=== PATIENT | female | born 1940 | race Caucasian/White ===

== ENCOUNTER 2017-08-12 12:23 | Observation (INO) | payer OTHER, MEDICAID ==
[2017-08-12] VITALS (8 sets, daily range): BP systolic 141–202; BP diastolic 70–86; PULSE 86–104; RESP 16–20; TEMP 98–98.5; O2SAT 95–96
[~2017-08-12] VITALS: Ht 160 cm; Wt 67.0 kg
[~2017-08-12 12:23] MED LIST: CHOL4POW4 PO; CIPR500T4 PO; FLAG500T PO; LISI-357 PO; LORTA5 PO; NEUR300C PO; OMEP20TA PO
--- NOTE | 2017-08-12 12:31 | PD ---
Physical Exam Date Seen by Provider: Aug 12, 2017 Time Seen by Provider: 12:28 Narrative 76-year-old white female presents to emergency department with complains of chest and back pain 2 days. She states that she's had 2 episodes waking her up in the middle the night. She states that she feels sharp pain and heaviness in her chest when this happens. It lasts typically approximately 5 minutes. She's had some associated diaphoresis. Mild shortness of breath No nausea vomiting. Today she states that she has cramping in her right upper back. Pain is a 5/10. She notified her doctor who advised to come the ER today. She denies any trauma. No history of coronary disease. Vital signs reviewed. Pt. waiting for bed placement. Data Data Last Documented VS Vital Signs Date Time Temp Pulse Resp B/P (MAP) Pulse Ox O2 Delivery O2 Flow Rate FiO2 08/12/17 12:26 98.5 104 17 183/80 (114) 96 Room Air [facility] Medical Record Reviewed: No Supervised Visit with ERIK: Jaydon Ordonez Aug 12, 2017 12:31
[2017-08-12] MEDS ORDERED: GABA300C5 PO (12:43)
[2017-08-12] MEDS ORDERED: LISI2.5T3 PO (12:43)
[2017-08-12] MEDS ORDERED: CHOL4POW3 PO (12:43)
[2017-08-12] MEDS ORDERED: OMEP20TA PO (12:43)
[2017-08-12] MEDS ORDERED: VITA100036 PO (12:44)
[2017-08-12] MEDS ORDERED: VITA10002 PO (12:44)
--- NOTE | 2017-08-12 13:13 | PD ---
HPI Chief Complaint: Chest Pain Time Seen by Provider: 13:10 Travel History International Travel<30 days: No Contact w/Intl Traveler<30days: No Traveled to known affect area: No History of Present Illness HPI 76-year-old female presents the emergency department with episodic chest pain with radiation to the right shoulder and between the shoulder blades. Patient states chest pressure with an 2 nights ago lasting approximate 5 minutes. She then felt fine until last evening where she had recurrent episode of chest pressure with radiation pain to the right shoulder and back, with continued discomfort between the shoulder blades which she rates as a 5 out of 10. She feels somewhat short of breath. She denies nausea, vomiting, or fever. No cough. Patient states she had her gallbladder out approximate 3 years ago. Patient normally does not take aspirin or other medications for her heart. No previous heart disease reported. She is allergic to codeine and oxycodone which makes her sick to her stomach. PFSH Past Medical History Arthritis: Yes Asthma: Yes Autoimmune Disease: No Heart Rhythm Problems: Yes (HX A FIB when had gallbladder sx went into afib) Cancer: No Cardiac Catheterization: No Cardiovascular Problems: Yes High Cholesterol: Yes Congestive Heart Failure: No Diabetes: No Diminished Hearing: Yes Endocrine: No Gastrointestinal Disorders: Yes GERD: Yes Genitourinary: Yes (KIDNEY STONES) Hepatitis: No Hiatal Hernia: No Hypertension: Yes Immune Disorder: No Medical other: Yes (ARTHRITIS) Musculoskeletal: Yes (BILATERAL FROZEN SHOULDER JOINT.) Neurologic: No Psychiatric: No Respiratory: Yes (?asthma,?bronchitis) Sickle Cell Disease: No Thyroid Disease: No Tetanus Vaccination: Unknown Menopausal: Yes Tubal Ligation: Yes Past Surgical History Abdominal Surgery: Yes (APPENDECTOMY AND TUBAL LIGATION) Appendectomy: Yes Cholecystectomy: Yes (2012) Coronary Artery Bypass Graft: No Genitourinary Surgery: Yes (KIDNEY STONES) Oral Surgery: Yes (AGE 5 T&A ; EGD) Pacemaker: No Tonsillectomy: Yes Other Surgery: Yes Social History Alcohol Use: Yes (RARELY) Tobacco Use: No Substance Use: No Allergies-Medications (Allergen,Severity, Reaction): Coded Allergies: codeine (Unverified Allergy, Severe, hives, 08/12/17) oxycodone (Unverified Adverse Reaction, Intermediate, LIGHTHEADED, ) Reported Meds & Prescriptions Reported Meds & Active Scripts Active Reported Vitamin D3 (Cholecalciferol) 1,000 Unit Cap 1,000 Units PO DAILY Vitamin B-12 (Cyanocobalamin) 1,000 Mcg Tab 1,000 Mcg PO DAILY Omeprazole 20 Mg Tab 20 Mg PO DAILY Lisinopril 2.5 Mg Tab 2.5 Mg PO DAILY Gabapentin 300 Mg Cap 300 Mg PO BID Cholestyramine 4 Gm/Dose Powd 4 Gm PO DAILY 1 level scoopful of powder contains 4 grams of cholestyramine. Review of Systems Except as stated in HPI: all other systems reviewed are Neg General / Constitutional: No: Fever, Chills Eyes: No: Visual changes HENT: No: Headaches Cardiovascular: Positive: Chest Pain or Discomfort, Dyspnea on exertion, No: Palpitations, Irregular Rhythm, Tachycardia, Diaphoresis, Syncope, Varicosities , Edema, Cyanosis, Varicosities, Phlebitis, Claudication Respiratory: No: Cough, Shortness of Breath, Wheezing Gastrointestinal: No: Nausea, Vomiting, Diarrhea, Abdominal Pain Genitourinary: No: Dysuria Musculoskeletal: No: Myalgias, Arthralgias, Limited ROM, Pain Skin: No Rash Neurologic: No: Weakness Psychiatric: No: Depression Endocrine: No: Polydipsia Hematologic/Lymphatic: No: Easy Bruising Physical Exam Narrative GENERAL: Patient appears in mild distress. SKIN: Warm and dry. Normal color. Normal turgor. HEAD: Atraumatic. Normocephalic. EYES: Pupils equal and round. No scleral icterus. No injection or drainage. ENT: No nasal bleeding or discharge. Mucous membranes pink and moist. Pharynx is normal. Airway is patent. NECK: Trachea midline. Supple and nontender. CARDIOVASCULAR: Regular rate and rhythm. No murmurs gallops or rubs. RESPIRATORY: No accessory muscle use. Clear to auscultation. Breath sounds equal bilaterally. GASTROINTESTINAL: Abdomen soft, mild right upper quadrant tenderness, nondistended. Hepatic and splenic margins not palpable. No CVA tenderness MUSCULOSKELETAL: Extremities without clubbing, cyanosis, or edema. No obvious deformities. NEUROLOGICAL: Awake and alert. No obvious cranial nerve deficits. Motor grossly within normal limits. Five out of 5 muscle strength in the arms and legs. Normal speech. PSYCHIATRIC: Appropriate mood and affect; insight and judgment normal. Data Data Last Documented VS Vital Signs Date Time Temp Pulse Resp B/P (MAP) Pulse Ox O2 Delivery O2 Flow Rate FiO2 08/12/17 13:41 86 16 171/75 (107) 95 Room Air 08/12/17 13:41 98.4 Orders Orders Electrocardiogram (08/12/17 13:13) Ckmb (Isoenzyme) Profile (08/12/17 13:13) Complete Blood Count With Diff (08/12/17 13:13) Comprehensive Metabolic Panel (08/12/17 13:13) Magnesium (Mg) (08/12/17 13:13) Prothrombin Time / Inr (Pt) (08/12/17 13:13) Act Partial Throm Time (Ptt) (08/12/17 13:13) Troponin I (08/12/17 13:13) Lipase (08/12/17 13:13) Chest, Single Ap (08/12/17 13:13) Ecg Monitoring (08/12/17 13:13) Bilateral Bp Monitoring (08/12/17 13:13) Iv Access Insert/Monitor (08/12/17 13:13) Oximetry (08/12/17 13:13) Oxygen Administration (08/12/17 13:13) Aspirin Chew (Aspirin Chew) (08/12/17 13:15) Morphine Inj (Morphine Inj) (08/12/17 13:15) Nitroglycerin 2% Oint (Nitroglycerin 2% (08/12/17 13:15) Sodium Chloride 0.9% Flush (Ns Flush) (08/12/17 13:15) Sodium Chlorid 0.9% 500 Ml Inj (Ns 500 M (08/12/17 13:15) Ondansetron Inj (Zofran Inj) (08/12/17 13:15) Admit Order (Ed Use Only) (08/12/17 14:05) Labs Laboratory Tests Test 08/12/17 13:15 White Blood Count 8.4 TH/MM3 Red Blood Count 4.88 MIL/MM3 Hemoglobin 14.0 GM/DL Hematocrit 41.4 % Mean Corpuscular Volume 84.9 FL Mean Corpuscular Hemoglobin 28.8 PG Mean Corpuscular Hemoglobin Concent 33.9 % Red Cell Distribution Width 14.6 % Platelet Count 255 TH/MM3 Mean Platelet Volume 7.7 FL Neutrophils (%) (Auto) 61.5 % Lymphocytes (%) (Auto) 29.5 % Monocytes (%) (Auto) 6.6 % Eosinophils (%) (Auto) 1.5 % Basophils (%) (Auto) 0.9 % Neutrophils # (Auto) 5.2 TH/MM3 Lymphocytes # (Auto) 2.5 TH/MM3 Monocytes # (Auto) 0.6 TH/MM3 Eosinophils # (Auto) 0.1 TH/MM3 Basophils # (Auto) 0.1 TH/MM3 CBC Comment DIFF FINAL Differential Comment Prothrombin Time 10.6 SEC Prothromb Time International Ratio 1.0 RATIO Activated Partial Thromboplast Time 24.9 SEC Blood Urea Nitrogen 14 MG/DL Creatinine 0.81 MG/DL Random Glucose 109 MG/DL Total Protein 7.0 GM/DL Albumin 3.6 GM/DL Calcium Level 8.9 MG/DL Magnesium Level 2.2 MG/DL Alkaline Phosphatase 121 U/L Aspartate Amino Transf (AST/SGOT) 24 U/L Alanine Aminotransferase (ALT/SGPT) 21 U/L Total Bilirubin 0.5 MG/DL Sodium Level 138 MEQ/L Potassium Level 4.1 MEQ/L Chloride Level 107 MEQ/L Carbon Dioxide Level 23.7 MEQ/L Anion Gap 7 MEQ/L Estimat Glomerular Filtration Rate 69 ML/MIN Total Creatine Kinase 62 U/L Troponin I LESS THAN 0.02 NG/ML Lipase 147 U/L MDM Medical Decision Making Medical Screen Exam Complete: Yes Emergency Medical Condition: Yes Medical Record Reviewed: Yes Differential Diagnosis Atypical chest pain. Biliary colic. Pancreatitis. Cardiac syndrome. Narrative Course Patient appears medically stable at time of exam. EKG shows normal sinus rhythm without ST changes. This is reviewed with Dr. Green. X-ray is ordered. Labs ordered including CBC, CMP, cardiac panel, coagulation studies, lipase, and urinalysis. IV access is obtained, patient is given 500 mL of normal saline bolus, 4 mg morphine IV, 4 mg Zofran IV, and 324 mg aspirin. CBC is unremarkable. CMP is unremarkable except for GFR 69, random glucose 109, alkaline phosphatase slightly elevated at 121, first troponin is less than 0.02 Coagulation studies are normal. Patient is reassessed and found to have improved pain down to about a 1-2 in her back between her shoulder blades. Discussed admission to the chest pain center, and the patient agrees. Diagnosis Primary Impression: Chest pain in adult Admitting Information Admitting Physician Requests: Observation Condition: Stable Jacob Sanchez Aug 12, 2017 13:13
[2017-08-12] MEDS ORDERED: SODIUM CHLORIDE 0.9% FLUSH 10 ML FLUSH IVF PRN (13:15)
[2017-08-12] MEDS ORDERED: SODIUM CHLORID 0.9% 500 ML INJ 500 ML IV ONE (13:15)
[2017-08-12] MEDS ORDERED: ONDANSETRON HCL 4 MG/2 ML VIAL IV PUSH ONE (13:15)
[2017-08-12] MEDS ORDERED: MORPHINE SULFATE 4 MG/ML INJ IV PUSH ONE (13:15)
[2017-08-12] MEDS ORDERED: ASPIRIN 81 MG CHEW TAB PO ONE (13:15)
[2017-08-12] MEDS ORDERED: NITROGLYCERIN 2% OINT 1 GM PACKET TOP ONE (13:15)
[2017-08-12 13:41] LABS: AUTOMATED NEUTROPHIL # 5.2 TH/MM3 (1.8-7.7); BASOPHIL # 0.1 TH/MM3 (0-0.2); BASOPHIL % 0.9 % (0.0-2.0); EOSINOPHIL # 0.1 TH/MM3 (0-0.4); EOSINOPHIL % 1.5 % (0.0-4.0); HEMATOCRIT 41.4 % (35.0-46.0); HEMO FLAGS DIFF FINAL; LYMPH % 29.5 % (9.0-44.0); LYMPHOCYTE # 2.5 TH/MM3 (1.0-4.8); MEAN CELL VOLUME 84.9 FL (80.0-100.0); MEAN CORPUSCULAR HEMOGLOBIN 28.8 PG (27.0-34.0); MEAN CORPUSCULAR HGB CONC 33.9 % (32.0-36.0); MONO % 6.6 % (0.0-8.0); NEUT % 61.5 % (16.0-70.0); PLATELET COUNT 255 TH/MM3 (150-450); RED BLOOD COUNT 4.88 MIL/MM3 (4.00-5.30); RED CELL DISTRIBUTION WIDTH 14.6 % (11.6-17.2); WHITE BLOOD COUNT 8.4 TH/MM3 (4.0-11.0)
--- NOTE | 2017-08-12 13:42 | RADRPT ---
EXAM DATE/TIME: 08/12/2017 13:30 [facility] COMPARISON: CHEST SINGLE AP, January 06, 2016, 17:12. INDICATIONS : Chest pain began suddenly this morning MEDICAL HISTORY : Hypertension. SURGICAL HISTORY : None. ENCOUNTER: Initial ACUITY: 1 day PAIN SCORE: 6/10 LOCATION: Bilateral chest FINDINGS: A single view of the chest demonstrates the lungs to be symmetrically aerated without evidence of mas s, infiltrate or effusion. The cardiomediastinal contours are unremarkable. Osseous structures are intact. CONCLUSION: No acute disease. Flaquito Medellin MD FACR on August 12, 2017 at 13:40 Board Certified Radiologist. This report was verified electronically.
[2017-08-12 13:52] LABS: ALT (GPT) 21 U/L (10-53)
[2017-08-12 13:53] LABS: APTT (PATIENT) 24.9 SEC (24.3-30.1); PROTHROMBIN TIME - PATIENT 10.6 SEC (9.8-11.6)
[2017-08-12 13:56] LABS: ALKALINE PHOSPHATASE 121 U/L (45-117); ANION GAP 7 MEQ/L (5-15); AST (GOT) 24 U/L (15-37); BICARBONATE 23.7 MEQ/L (21.0-32.0); BLOOD UREA NITROGEN 14 MG/DL (7-18); CHLORIDE 107 MEQ/L (98-107); GLOMERULAR FILTRATION RATE 69 ML/MIN (>89); MAGNESIUM 2.2 MG/DL (1.5-2.5); SODIUM (NA) 138 MEQ/L (136-145); TOTAL BILIRUBIN ADULT 0.5 MG/DL (0.2-1.0)
[2017-08-12 13:57] LABS: CREATINE KINASE 62 U/L (26-192); POTASSIUM 4.1 MEQ/L (3.5-5.1)
[2017-08-12] MEDS ORDERED: NITROGLYCERIN 0.4 MG SL 25 TABS/BTL SL PRN (14:45)
[2017-08-12] MEDS ORDERED: ACETAMINOPHEN 500 MG CPLT PO PRN (14:45)
[2017-08-12] MEDS ORDERED: ONDANSETRON HCL 4 MG/2 ML VIAL IV PUSH PRN (14:45)
--- NOTE | 2017-08-12 15:26 | HHI.HP ---
HPI Primary Care Physician Gonzalo Nelson MD Chief Complaint Chest pressure History of Present Illness 76-year-old female with history of osteoarthritis and GERD presents to emergency room for further evaluation of chest pressure. Onset Saturday evening. Discomfort woke her from sleep. Location substernal chest. Radiation between her shoulder blades. Duration 10 minutes. Associated symptoms shortness of breath and fatigue. Initially thought maybe she slept "wrong." Episode occurred again Saturday 3 AM, same location and presentation. This morning approximately 6:30 AM chest pressure woke her up from sleep. Location substernal with radiation between her shoulder blades. Duration 10 minutes. Again she experienced dyspnea and fatigue. Reports diaphoresis although states this is normal for her. No known precipitating or relieving factors. Denies similar pain in the past. Currently chest pain-free. Became concerned due to 3 separate chest pressure episodes therefore came in the ER for further evaluation. Review of Systems General: No fatigue,weakness, fever, chills, or recent illness. Endorses an active lifestyle. Walks 3 times/weekly the local rec center. Was an avid runner until 3 years ago. HEENT: No CHAVEZ CV: As stated above. Denies any current chest pain, pressure, or tightness. RESP: No SOB, cough, or sputum production. GI: No nausea, vomiting, or bowel changes. : No dysuria. History of kidney stones. Reports lisinopril is ordered to "protect her kidneys." EXT: No lower leg edema, no paraesthesias MS: No discomfort or change in ROM NEURO: No change in memory, dizziness, difficulty with balance, LOC, motor/ sensory deficits PSYCH: No anxiety, depression, or current situational stress. SKIN: No rashes, no concerning lesions Past Family Social History Allergies: Coded Allergies: codeine (Unverified Allergy, Severe, hives, 08/12/17) oxycodone (Unverified Adverse Reaction, Intermediate, LIGHTHEADED, ) Past Medical History GERD, diverticulosis, asthma, osteoarthritis, liver cyst, kidney stones, A. fib (after gallbladder surgery 3 years ago) Past Surgical History Tonsillectomy, appendectomy, cholecystectomy Reported Medications Reported Meds & Active Scripts Active Reported Vitamin D3 (Cholecalciferol) 1,000 Unit Cap 1,000 Units PO DAILY Vitamin B-12 (Cyanocobalamin) 1,000 Mcg Tab 1,000 Mcg PO DAILY Omeprazole 20 Mg Tab 20 Mg PO DAILY Lisinopril 2.5 Mg Tab 2.5 Mg PO DAILY Gabapentin 300 Mg Cap 300 Mg PO BID Cholestyramine 4 Gm/Dose Powd 4 Gm PO DAILY 1 level scoopful of powder contains 4 grams of cholestyramine. Active Ordered Medications Current Medications Medications (Trade) Dose Ordered Sig/Shayna Route Start Time Stop Time Status Last Admin (NS Flush) 2 ml UNSCH PRN IVF 08/12/17 13:15 (NS Flush) 2 ml BID IV FLUSH 08/12/17 21:00 (Tylenol) 500 mg Q4H PRN PO 08/12/17 14:45 (Zofran Inj) 4 mg Q6H PRN IV PUSH 08/12/17 14:45 (Nitrostat Sl) 0.4 mg Q5M PRN SL 08/12/17 14:45 (Aspirin) 325 mg DAILY PO 08/13/17 09:00 Family History Noncontributory for early onset cardiovascular disease. Social History No known coronary artery disease, hypertension, or hyperlipidemia, or diabetes. Lifelong nonsmoker. Endorses an active lifestyle. Walks 3 times/weekly local rec center. Past cardiac testing No recent stress testing Physical Exam Vital Signs Vital Signs Date Time Temp Pulse Resp B/P (MAP) Pulse Ox O2 Delivery O2 Flow Rate FiO2 08/12/17 13:41 86 16 171/75 (107) 95 Room Air 08/12/17 13:41 98.4 102 19 202/86 (124) 201/82 (121) 08/12/17 13:41 96 Room Air 08/12/17 12:37 105 19 98 Room Air 08/12/17 12:26 98.5 104 17 183/80 (114) 96 Room Air Physical Exam GENERAL: Alert WN, WD, NAD, pleasant, elderly female HEAD: NC, AT NECK: Supple, no masses, trachea midline CV: RRR, without murmur, rub, gallop, no JVD, S1-S2 no S3-S4. RESP: Clear lungs throughout bilateral, no crackles, wheeze, rhonchi, symmetrical chest rise, nonlabored, able to speak in full sentences ABD: Soft, NT, ND, no masses, positive bowel tones EXT: Pulses +24, trace bilateral lower extremity edema, bilateral lower leg varicosities MS: Normal tone 4 extremities, nontender, no obvious deformities, full range of motion NEURO: CN II through CN XII grossly intact, motor strength 5/5 PSYCH: A+O 3, pleasant affect, appropriate speech, appropriate mood and affect , insight and judgment SKIN: Normal turgor, normal texture, no lesions, no rashes, brisk cap refill, even hair distribution Laboratory Laboratory Tests Test 08/12/17 13:15 White Blood Count 8.4 Red Blood Count 4.88 Hemoglobin 14.0 Hematocrit 41.4 Mean Corpuscular Volume 84.9 Mean Corpuscular Hemoglobin 28.8 Mean Corpuscular Hemoglobin Concent 33.9 Red Cell Distribution Width 14.6 Platelet Count 255 Mean Platelet Volume 7.7 Neutrophils (%) (Auto) 61.5 Lymphocytes (%) (Auto) 29.5 Monocytes (%) (Auto) 6.6 Eosinophils (%) (Auto) 1.5 Basophils (%) (Auto) 0.9 Neutrophils # (Auto) 5.2 Lymphocytes # (Auto) 2.5 Monocytes # (Auto) 0.6 Eosinophils # (Auto) 0.1 Basophils # (Auto) 0.1 CBC Comment DIFF FINAL Differential Comment Prothrombin Time 10.6 Prothromb Time International Ratio 1.0 Activated Partial Thromboplast Time 24.9 Blood Urea Nitrogen 14 Creatinine 0.81 Random Glucose 109 Total Protein 7.0 Albumin 3.6 Calcium Level 8.9 Magnesium Level 2.2 Alkaline Phosphatase 121 Aspartate Amino Transf (AST/SGOT) 24 Alanine Aminotransferase (ALT/SGPT) 21 Total Bilirubin 0.5 Sodium Level 138 Potassium Level 4.1 Chloride Level 107 Carbon Dioxide Level 23.7 Anion Gap 7 Estimat Glomerular Filtration Rate 69 Total Creatine Kinase 62 Troponin I LESS THAN 0.02 Lipase 147 Result Diagram: 08/12/17 1315 08/12/17 1315 Imaging Last Impressions Chest X-Ray 08/12/17 1313 Signed Impressions: Service Date/Time: Saturday, August 12, 2017 13:30 - CONCLUSION: No acute disease. Flaquito Medellin MD FACR Course EKG Normal sinus rhythm, normal axis, no ST or T-segment changes Caprini VTE Risk Assessment Caprini VTE Risk Assessment: Mod/High Risk (score >= 2) Caprini Risk Assessment Model Point Value = 1 Point Value = 2 Point Value = 3 Point Value = 5 Age 41-60 Minor surgery BMI > 25 kg/m2 Swollen legs Varicose veins or History of unexplained or recurrent spontaneous Oral contraceptives or hormone replacement Sepsis (< 1 month) Serious lung disease, including pneumonia (< 1 month) Abnormal pulmonary function Acute myocardial infarction Congestive heart failure (< 1 month) History of inflammatory bowel disease Medical patient at bed rest Age 61-74 Arthroscopic surgery Major open surgery (> 45 min) Laparoscopic surgery (> 45 min) Malignancy Confined to bed (> 72 hours) Immobilizing plaster cast Central venous access Age >= 75 History of VTE Family history of VTE Factor V Leiden Prothrombin [id number] Lupus anticoagulant Anticardiolipin antibodies Elevated serum homocysteine Heparin-induced thrombocytopenia Other congenital or acquired thrombophilia Stroke (< 1 month) Elective arthroplasty Hip, pelvis, or leg fracture Acute spinal cord injury (< 1 month) Prophylaxis Regimen Total Risk Factor Score Risk Level Prophylaxis Regimen 0-1 Low Early ambulation 2 Moderate Order ONE of the following: *Sequential Compression Device (SCD) *Heparin 5000 units SQ BID 3-4 Higher Order ONE of the following medications: *Heparin 5000 units SQ TID *Enoxaparin/Lovenox 40 mg SQ daily (WT < 150 kg, CrCl > 30 mL/min) *Enoxaparin/Lovenox 30 mg SQ daily (WT < 150 kg, CrCl > 10-29 mL/min) *Enoxaparin/Lovenox 30 mg SQ BID (WT < 150 kg, CrCl > 30 mL/min) AND/OR *Sequential Compression Device (SCD) 5 or more Highest Order ONE of the following medications: *Heparin 5000 units SQ TID (Preferred with Epidurals) *Enoxaparin/Lovenox 40 mg SQ daily (WT < 150 kg, CrCl > 30 mL/min) *Enoxaparin/Lovenox 30 mg SQ daily (WT < 150 kg, CrCl > 10-29 mL/min) *Enoxaparin/Lovenox 30 mg SQ BID (WT < 150 kg, CrCl > 30 mL/min) AND *Sequential Compression Device (SCD) Assessment and Plan Assessment and Plan #1 Chest pain-admitted to chest pain center. Ruled out with 3 sets of EKGs, cardiac enzymes, and monitor overnight. Seen and evaluated by Dr. Eugene Cooley. If rules out plan for chemical stress test in a.m. Naturally if unremarkable, will discharge home with follow-up with PCP Dr. Gonzalo Nelson. Patient agreeable to plan of care. #2 GERD-continue omeprazole #3 Hypertension-continue to monitor Ana Davis Aug 12, 2017 15:26
[2017-08-12] MEDS ORDERED: PILL SPLITTER OTHER PRN (17:15)
[2017-08-12] MEDS: SODIUM CHLORIDE 0.9% FLUSH 10 ML FLUSH IV FLUSH SCH (21:00)
[2017-08-12] MEDS: GABAPENTIN 300 MG CAP PO SCH (21:00)
[2017-08-12 21:01] LABS: CREATINE KINASE 55 U/L (26-192)
[2017-08-12 23:22] LABS: CREATINE KINASE 36 U/L (26-192)
[2017-08-13 00:38] VITALS: PULSE 80
[2017-08-13 00:41] VITALS: BP 173/72; PULSE 81; RESP 17; TEMP 98.1; O2SAT 94
[2017-08-13 04:29] VITALS: BP 137/60; PULSE 77; RESP 17; TEMP 98.4; O2SAT 95
[2017-08-13 07:21] VITALS: PULSE 78
[2017-08-13 08:00] VITALS: BP 132/60; PULSE 75; RESP 16; TEMP 98.2; O2SAT 95
[2017-08-13] MEDS ORDERED: CHOLECALCIFEROL (VIT D3) 1000 UNIT TAB PO SCH (09:00)
[2017-08-13] MEDS ORDERED: CHOLESTYRAMINE 4 GM PACKET PO SCH (09:00)
[2017-08-13] MEDS ORDERED: PANTOPRAZOLE SOD 20 MG DELAYED RELEASE TAB PO SCH (09:00)
[2017-08-13] MEDS ORDERED: ASPIRIN 325 MG TAB PO SCH (09:00)
[2017-08-13] MEDS ORDERED: LISINOPRIL 5 MG TAB PO SCH (09:00)
[2017-08-13] MEDS: SODIUM CHLORIDE 0.9% FLUSH 10 ML FLUSH IV FLUSH SCH (09:00)
[2017-08-13] MEDS ORDERED: REGADENOSON INJ 0.4 MG/5 ML SYR ONE (09:05)
--- NOTE | 2017-08-13 10:39 | RADRPT ---
EXAM DATE/TIME: 08/13/2017 08:35 [facility] COMPARISON: No previous studies available for comparison. INDICATIONS : Mid chest pain with shortness of breath for four days. Angina. Atrial fibrillation. DOSE: 25.6 mCi Tc99m Myoview at stress. 8.7 mCi Tc99m Myoview at rest. 0.4 mg Lexiscan STRESS SYMPTOMS: Chest pressure. EJECTION FRACTION: > 70% MEDICAL HISTORY : Gastroesophageal reflux disease. SURGICAL HISTORY : Tubal ligation. Cholecystectomy. Appendectomy. ENCOUNTER: Initial ACUITY: 4 - 6 days PAIN SCALE: 5/10 LOCATION: Midsternal chest TECHNIQUE: The patient underwent pharmacologic stress with infusion of prescribed dose. Continuous ECG tracing was monitored during stress. Gated SPECT imaging was performed after stress and conventional SPECT i maging was performed at rest. The examination was performed on a SPECT/CT scanner, both attenuation and non-corrected datasets were reviewed. FINDINGS: DISTRIBUTION: The maximum perfused segment at stress is in the inferior wall. PERFUSION STUDY: The pattern of perfusion at stress is within normal limits with regional variations distress within 2 5%. No evidence of redistribution. The summed stress score zero. GATED STUDY: There is intact wall motion and thickening without hypokinetic or dyskinetic segments. CONCLUSION: 1. No evidence of stress-induced ischemia. 2. Technical motion with greater than 70% ejection fraction. RISK CATEGORY: Low (<1% Annual Mortality Rate) Johnny Dias MD on August 13, 2017 at 10:36 Board Certified Radiologist. This report was verified electronically.
[2017-08-13] MEDS: GABAPENTIN 300 MG CAP PO SCH (11:04)
--- NOTE | 2017-08-13 11:10 | HHI.DCPOC ---
Discharge Care Plan Diagnosis: (1) Atypical chest pain (2) Hypertension Goals to Promote Your Health * To prevent worsening of your condition and complications * To maintain your health at the optimal level Directions to Meet Your Goals Take your medications as prescribed Follow your dietary instruction Follow activity as directed Keep your appointments as scheduled Take your immunizations and boosters as scheduled If your symptoms worsen call your PCP, if no PCP go to Urgent Care Center or Emergency Room Smoking is Dangerous to Your Health. Avoid second hand smoke Call the 24-hour hour crisis hotline for domestic abuse at Ana Davis Aug 13, 2017 11:10
--- NOTE | 2017-08-13 11:13 | HHI.DS ---
Discharge Summary Admission Date Aug 12, 2017 at 14:07 Discharge Date: Aug 13, 2017 Admitting Diagnosis CHEST PAIN (1) Atypical chest pain Diagnosis: Principal ICD Codes: R07.89 - Other chest pain (2) Hypertension Diagnosis: Secondary ICD Codes: I10 - Essential (primary) hypertension Status: Chronic Procedures Last Impressions Myocardial Perfusion Scan Nuc Med 08/13/17 0000 Signed Impressions: Service Date/Time: Sunday, August 13, 2017 08:35 - CONCLUSION: 1. No evidence of stress-induced ischemia. 2. Technical motion with greater than 70% % ejection fraction. RISK CATEGORY: Low (<1%% Annual Mortality Rate) Johnny Dias MD Chest X-Ray 08/12/171312 Signed Impressions: Service Date/Time: Saturday, August 12, 2017 13:30 - CONCLUSION: No acute disease. Flaquito Medellin MD FACR Brief History 76-year-old female presents to emergency room for further evaluation chest pressure. Discomfort occurred last 3 evenings lasting approximately 10 minutes. Admitted to chest pain center. Ruled out with 3 sets of EKGs and cardiac enzymes. Proceeded with chemical stress test which was unremarkable. Discharged home with follow-up with PCP. CBC/BMP: 08/12/17 1315 08/12/17 1315 Significant Findings Laboratory Tests Test 08/12/17 13:15 08/12/17 19:15 08/12/17 22:30 Random Glucose 109 MG/DL (74-106) Alkaline Phosphatase 121 U/L (45-117) Estimat Glomerular Filtration Rate 69 ML/MIN (>89) Troponin I LESS THAN 0.02 NG/ML LESS THAN 0.02 NG/ML LESS THAN 0.02 NG/ML Imaging Last Impressions Myocardial Perfusion Scan Nuc Med 08/13/17 0000 Signed Impressions: Service Date/Time: Sunday, August 13, 2017 08:35 - CONCLUSION: 1. No evidence of stress-induced ischemia. 2. Technical motion with greater than 70% % ejection fraction. RISK CATEGORY: Low (<1%% Annual Mortality Rate) Johnny Dias MD Chest X-Ray 08/12/173 Signed Impressions: Service Date/Time: Saturday, August 12, 2017 13:30 - CONCLUSION: No acute disease. Flaquito Medellin MD FACR PE at Discharge GENERAL: Alert WN, WD, NAD, pleasant, female HEAD: NC, AT CV: RRR, without murmur, rub, gallop, no JVD, S1-S2 no S3-S4. RESP: Clear lungs throughout bilateral, no crackles, wheeze, rhonchi, symmetrical chest rise, nonlabored, able to speak in full sentences EXT: Pulses +24, no dependent edema MS: Normal tone 4 extremities, PSYCH: A+O 3, pleasant affect, appropriate speech, appropriate mood and affect , insight and judgment SKIN: Normal turgor, normal texture Pt Condition on Discharge: Good Discharge Disposition: Discharge Home Discharge Instructions DIET: Follow Instructions for: Heart Healthy Diet Activities you can perform: Regular-No Restrictions Ana Davis Aug 13, 2017 11:13
--- NOTE | 2017-08-13 14:34 | TR ---
Date Performed: 08/13/2017 Time Performed: 09:33:16 DOCTOR: Edita Deleon DRUG LIST: CLINICAL HISTORY: ANGINA REASON FOR TEST: REASON FOR ENDING: OBSERVATION: CONCLUSION: Lexiscan stress test was performed under standard four minute protocol. Radionuclid e was injected one minute prior to ending the test. No electrocardiographic abormalities were present to suggest ischemia. Nuclear imaging and interpretation are pending. COMMENTS:
--- NOTE | 2017-08-13 14:37 | EKG ---
Date Performed: 08/12/2017 Time Performed: 19:58:47 PTAGE: 76 years EKG: Sinus rhythm NORMAL ECG Since PREVIOUS TRACING , no significant change noted PREVIOUS TRACIN08/12/2017 16.35 DOCTOR: Edita Deleon Interpretating Date/Time 08/13/2017 14:35:59
--- NOTE | 2017-08-13 17:27 | EKG ---
Date Performed: 08/12/2017 Time Performed: 12:53:35 PTAGE: 76 years EKG: Sinus rhythm NORMAL ECG Since PREVIOUS TRACING , no significant change noted PREVIOUS TRACIN01/06/2016 17.36 DOCTOR: Edita Deleon Interpretating Date/Time 08/13/2017 17:26:19
--- NOTE | 2017-08-13 17:29 | EKG ---
Date Performed: 08/12/2017 Time Performed: 16:35:17 PTAGE: 76 years EKG: Sinus rhythm NORMAL ECG Since PREVIOUS TRACING , no significant change noted PREVIOUS TRACIN08/12/2017 12.53 DOCTOR: Edita Deleon Interpretating Date/Time 08/13/2017 17:28:06
== END 2017-08-13 11:55 | disposition home or self-care (01) ==
LOC: NEPE 12:23 → NEDA 14:07 → NEPHCDU 16:41
PROVIDERS: ADMIT Internal Medicine Cardiovascular Disease; ATTEND Internal Medicine Cardiovascular Disease
DX: R07.89 Other chest pain (principal); I10 Essential (primary) hypertension; K21.9 Gastro-esophageal reflux disease without esophagitis; M54.9 Dorsalgia, unspecified; R61 Generalized hyperhidrosis; R53.83 Other fatigue; R06.02 Shortness of breath; J45.909 Unspecified asthma, uncomplicated; I48.91 Unspecified atrial fibrillation; E78.00 Pure hypercholesterolemia, unspecified; H91.90 Unspecified hearing loss, unspecified ear; M19.90 Unspecified osteoarthritis, unspecified site
CPT/HCPCS: 71010; 78452; 80053; 82550; 83690; 83735; 84484; 85025; 85610; 85730; 93005; 93017; 96361; 96374; 96375; 99285; A9502; G0378; J2270; J2405; J2785; J7040

== ENCOUNTER 2018-03-02 17:01 | Emergency (ER) | payer OTHER, MEDICAID ==
[~2018-03-02] VITALS: Ht 160 cm; Wt 67.0 kg
[~2018-03-02 17:01] MED LIST changes: +CHOL10008 PO; +CHOL4POW3 PO; -CHOL4POW4 PO; -CIPR500T4 PO; -FLAG500T PO; +GABA300C5 PO; -LISI-357 PO; +LISI2.5T3 PO; -LORTA5 PO; -NEUR300C PO; -OMEP20TA PO; +OMEP20TA93 PO; +VITA10002 PO
[2018-03-02 17:04] VITALS: BP 187/86; PULSE 128; RESP 20; TEMP 97.9; O2SAT 96
[2018-03-02] MEDS ORDERED: SODIUM CHLORIDE 0.9% FLUSH 10 ML FLUSH IV FLUSH PRN ×2 (17:15→17:45)
[2018-03-02] MEDS ORDERED: SODIUM CHLOR 0.9% 1000 ML INJ 1,000 ML IV SCH (17:37)
[2018-03-02] MEDS ORDERED: ONDANSETRON ODT 4 MG TAB PO ONE (17:45)
--- NOTE | 2018-03-02 17:50 | PD ---
HPI Chief Complaint: GI Complaint Time Seen by Provider: 17:15 Travel History International Travel<30 days: No Contact w/Intl Traveler<30days: No Traveled to known affect area: No History of Present Illness HPI Patient presents to the emergency department states she did not feel well on Saturday night and on began having watery diarrhea and vomiting. Denies bloody stool or recent antibiotic use or recent travel or known sick contacts. States that she did not take her blood pressure medicine secondary to vomiting. She denies fever but reports chills, nausea and vomiting (last emesis 1 hour ago, p.o. intake). He denies chest pain, numbness or tingling, back pain, vision change, hematuria, dysuria, vaginal discharge, abdominal pain (but states that her abdomen is sore from vomiting). She is also reporting some dyspnea and headache, the latter for which she took 2 Aleve last night. PFSH Past Medical History Arthritis: Yes Asthma: Yes Autoimmune Disease: No Heart Rhythm Problems: Yes (HX A FIB when had gallbladder sx went into afib) Cancer: No Cardiac Catheterization: No Cardiovascular Problems: Yes High Cholesterol: Yes Congestive Heart Failure: No Diabetes: No Diminished Hearing: Yes Endocrine: No Gastrointestinal Disorders: Yes GERD: Yes Genitourinary: Yes (KIDNEY STONES) Hepatitis: No Hiatal Hernia: No Hypertension: Yes Immune Disorder: No Musculoskeletal: Yes (BILATERAL FROZEN SHOULDER JOINT.) Neurologic: No Psychiatric: No Respiratory: Yes (?asthma,?bronchitis) Sickle Cell Disease: No Thyroid Disease: No Menopausal: Yes Tubal Ligation: Yes Past Surgical History Abdominal Surgery: Yes (APPENDECTOMY AND TUBAL LIGATION) Appendectomy: Yes Cholecystectomy: Yes (2012) Coronary Artery Bypass Graft: No Genitourinary Surgery: Yes (KIDNEY STONES) Oral Surgery: Yes (AGE 5 T&A ; EGD) Pacemaker: No Tonsillectomy: Yes Other Surgery: Yes Social History Alcohol Use: Yes (RARELY) Tobacco Use: No Substance Use: No Allergies-Medications (Allergen,Severity, Reaction): Coded Allergies: codeine (Unverified Allergy, Severe, hives, 03/02/18) oxycodone (Unverified Adverse Reaction, Intermediate, LIGHTHEADED, 03/02/18 ) Reported Meds & Prescriptions Reported Meds & Active Scripts Active Zofran Odt (Ondansetron Odt) 4 Mg Tab 4 Mg SL Q6HR PRN 2 Days Reported Vitamin D3 (Cholecalciferol) 1,000 Unit Cap 2,000 Units PO DAILY Omeprazole 20 Mg Tab 20 Mg PO DAILY Lisinopril 2.5 Mg Tab 5 Mg PO DAILY Gabapentin 300 Mg Cap 300 Mg PO TID Cholestyramine 4 Gm/Dose Powd 4 Gm PO DAILY 1 level scoopful of powder contains 4 grams of cholestyramine. Review of Systems Except as stated in HPI: all other systems reviewed are Neg Physical Exam Narrative GENERAL: No acute distress. SKIN: Focused skin assessment warm/dry. HEAD: Atraumatic. Normocephalic. EYES: Pupils equal and round. No scleral icterus. No injection or drainage. ENT: No nasal bleeding or discharge. Dry mucous membranes. NECK: Trachea midline. No JVD. CARDIOVASCULAR: Tachycardia. no murmur appreciated. RESPIRATORY: No accessory muscle use. Clear to auscultation. Breath sounds equal bilaterally. GASTROINTESTINAL: Abdomen soft, epigastric tender, nondistended. Bilateral CVA tenderness. MUSCULOSKELETAL: No obvious deformities. No clubbing. No cyanosis. No edema. NEUROLOGICAL: Awake and alert. No obvious cranial nerve deficits. Motor grossly within normal limits. Normal speech. PSYCHIATRIC: Appropriate mood and affect; insight and judgment normal. Data Data Last Documented VS Vital Signs Date Time Temp Pulse Resp B/P (MAP) Pulse Ox O2 Delivery O2 Flow Rate FiO2 03/02/18 20:26 98 18 181/77 (111) 96 Room Air 03/02/18 17:04 97.9 Orders Orders Sodium Chloride 0.9% Flush (Ns Flush) (03/02/18 17:15) Complete Blood Count With Diff (03/02/18 17:37) Comprehensive Metabolic Panel (03/02/18 17:37) Lipase (03/02/18 17:37) Lactic Acid (03/02/18 17:37) Prothrombin Time / Inr (Pt) (03/02/18 17:37) Act Partial Throm Time (Ptt) (03/02/18 17:37) Urinalysis - C+S If Indicated (03/02/18 17:37) Iv Access Insert/Monitor (03/02/18 17:37) Ecg Monitoring (03/02/18 17:37) Oximetry (03/02/18 17:37) Sodium Chlor 0.9% 1000 Ml Inj (Ns 1000 M (03/02/18 17:37) Sodium Chloride 0.9% Flush (Ns Flush) (03/02/18 17:45) Electrocardiogram (03/02/18 17:37) Ondansetron Odt (Zofran Odt) (03/02/18 17:45) Ct Abd/Pel W Iv Contrast(Rout) (03/02/18 17:37) Troponin I (03/02/18 17:37) Iohexol 350 Inj (Omnipaque 350 Inj) (03/02/18 20:03) Sodium Chlor 0.9% 1000 Ml Inj (Ns 1000 M (03/02/18 20:15) Lisinopril (Prinivil) (03/02/18 20:30) Ed Discharge Order (03/02/18 20:38) Labs Laboratory Tests Test 03/02/18 17:58 03/02/18 19:30 White Blood Count 5.5 TH/MM3 Red Blood Count 5.51 MIL/MM3 Hemoglobin 15.3 GM/DL Hematocrit 46.4 % Mean Corpuscular Volume 84.2 FL Mean Corpuscular Hemoglobin 27.8 PG Mean Corpuscular Hemoglobin Concent 33.0 % Red Cell Distribution Width 14.5 % Platelet Count 224 TH/MM3 Mean Platelet Volume 8.1 FL Neutrophils (%) (Auto) 71.6 % Lymphocytes (%) (Auto) 20.1 % Monocytes (%) (Auto) 6.8 % Eosinophils (%) (Auto) 1.1 % Basophils (%) (Auto) 0.4 % Neutrophils # (Auto) 3.9 TH/MM3 Lymphocytes # (Auto) 1.1 TH/MM3 Monocytes # (Auto) 0.4 TH/MM3 Eosinophils # (Auto) 0.1 TH/MM3 Basophils # (Auto) 0.0 TH/MM3 CBC Comment DIFF FINAL Differential Comment Prothrombin Time 10.6 SEC Prothromb Time International Ratio 1.0 RATIO Activated Partial Thromboplast Time 24.3 SEC Blood Urea Nitrogen 17 MG/DL Creatinine 0.88 MG/DL Random Glucose 120 MG/DL Total Protein 7.2 GM/DL Albumin 3.5 GM/DL Calcium Level 9.0 MG/DL Alkaline Phosphatase 94 U/L Aspartate Amino Transf (AST/SGOT) 18 U/L Alanine Aminotransferase (ALT/SGPT) 25 U/L Total Bilirubin 0.6 MG/DL Sodium Level 142 MEQ/L Potassium Level 3.5 MEQ/L Chloride Level 111 MEQ/L Carbon Dioxide Level 22.9 MEQ/L Anion Gap 8 MEQ/L Estimat Glomerular Filtration Rate 62 ML/MIN Lactic Acid Level 1.2 mmol/L Troponin I LESS THAN 0.02 NG/ML Lipase 131 U/L Urine Color CHRIS Urine Turbidity CLEAR Urine pH 5.5 Urine Specific [place] GREATER/EQUAL 1.030 Urine Protein TRACE mg/dL Urine Glucose (UA) NEG mg/dL Urine Ketones NEG mg/dL Urine Occult Blood MOD Urine Nitrite NEG Urine Bilirubin NEG Urine Urobilinogen 0.2 MG/DL Urine Leukocyte Esterase NEG Urine RBC 10-14 /hpf Urine WBC 0-2 /hpf Urine Squamous Epithelial Cells 6-8 /hpf Urine Bacteria FEW /hpf Microscopic Urinalysis Comment CULT NOT INDICATED MDM Medical Decision Making Medical Screen Exam Complete: Yes Emergency Medical Condition: Yes Interpretation(s) ECG: Sinus tachycardia 116, slight ST depression in lead I and II, left atrial enlargement Labs: glucose increased, troponin wnl, lipase and lactate wnl, ua + blood, FINDINGS: LOWER LUNGS: The visualized lower lungs are clear. LIVER: Redemonstration of multiple scattered bilobar hepatic cysts. Liver is otherwise stable in appearance. Gallbladder is surgically absent. Slight prominence of the central common bile duct likely due to reservoir effect. SPLEEN: Multiple splenic calcifications. PANCREAS: Within normal limits. KIDNEYS: Kidneys demonstrate symmetrical size with symmetrical enhancement. No radiopaque renal calculi or hydronephrosis. ADRENAL GLANDS: Stable subcentimeter left adrenal gland mass with low density consistent with adenoma. VASCULAR: No aortic aneurysm. Redemonstration of a peripherally calcified proximal splenic artery aneurysm measuring up to 14 mm unchanged from prior exam and central splenic artery aneurysm measuring up to 8 mm unchanged from prior exam. BOWEL/MESENTERY: Small hiatal hernia. Scattered colonic diverticulosis without significant inflammatory change to suggest diverticulitis. Small bowel loops are normal in caliber without evidence for obstruction. No free fluid or drainable fluid collections. ABDOMINAL WALL: Within normal limits. RETROPERITONEUM: There is no lymphadenopathy. BLADDER: No wall thickening or mass. REPRODUCTIVE: Within normal limits. INGUINAL: There is no lymphadenopathy or hernia. MUSCULOSKELETAL: Degenerative spondylosis of the lumbar spine. CONCLUSION: 1. Status post appendectomy. 2. Scattered colonic diverticulosis without significant inflammatory change to suggest diverticulitis. 3. Stable splenic artery aneurysms, above. 4. Additional stable ancillary findings include multiple hepatic cysts, small hiatal hernia, left adrenal adenoma, and degenerative spondylosis of the lumbar spine. Differential Diagnosis Gastroenteritis, colitis, mesenteric ischemia, viral illness Narrative Course Patient presents to the emergency department complaining of vomiting and diarrhea. Patient was placed on a cafeteria monitor, IV access obtained, and CT abdomen pelvis and labs ordered. As well as IV fluids and 4 mg Zofran ODT. 2012: Patient reports feeling, rate 103, will give patient a small amount of more fluids. Awaiting CT results. 2030: No acute findings on CT abdomen pelvis. Patient states that she feels better. Tolerating p.o. in the emergency department. Heart rate is 97. Will discharge. Diagnosis Primary Impression: Gastroenteritis Patient Instructions: Acute Diarrhea (ED), General Instructions Additional Instructions: 1. Meds as directed. 2. Return to the emergency department for vomiting despite medication, take more than 2 pills for nausea/vomiting in 24 hours, bloody diarrhea, fever, worsening abdominal pain, or any new/worrisome/ worsening symptoms. 3. Follow-up with primary care physician in 24-48 hours. Scripts Ondansetron Odt (Zofran Odt) 4 Mg Tab 4 MG SL Q6HR Y for Nausea/Vomiting for 2 Days, #8 TAB 0 Refills Prov: Krystal Varghese MD 03/02/18 Disposition: DISCHARGE HOME Condition: Stable Krystal Varghese MD March 02, 2018 17:50
[2018-03-02 18:11] LABS: AUTOMATED NEUTROPHIL # 3.9 TH/MM3 (1.8-7.7); BASOPHIL % 0.4 % (0.0-2.0); EOSINOPHIL # 0.1 TH/MM3 (0-0.4); EOSINOPHIL % 1.1 % (0.0-4.0); HEMATOCRIT 46.4 % (35.0-46.0); HEMOGLOBIN 15.3 GM/DL (11.6-15.3); LYMPH % 20.1 % (9.0-44.0); LYMPHOCYTE # 1.1 TH/MM3 (1.0-4.8); MEAN CELL VOLUME 84.2 FL (80.0-100.0); MEAN CORPUSCULAR HEMOGLOBIN 27.8 PG (27.0-34.0); MEAN PLATELET VOLUME 8.1 FL (7.0-11.0); MONO % 6.8 % (0.0-8.0); MONOCYTE # 0.4 TH/MM3 (0-0.9); NEUT % 71.6 % (16.0-70.0); PLATELET COUNT 224 TH/MM3 (150-450); RED BLOOD COUNT 5.51 MIL/MM3 (4.00-5.30); RED CELL DISTRIBUTION WIDTH 14.5 % (11.6-17.2); WHITE BLOOD COUNT 5.5 TH/MM3 (4.0-11.0)
[2018-03-02 18:21] LABS: CHLORIDE 111 MEQ/L (98-107); SODIUM (NA) 142 MEQ/L (136-145)
[2018-03-02 18:27] LABS: ALBUMIN 3.5 GM/DL (3.4-5.0); BICARBONATE 22.9 MEQ/L (21.0-32.0); BLOOD UREA NITROGEN 17 MG/DL (7-18); GLUCOSE,RANDOM 120 MG/DL (74-106); PROTHROMBIN TIME - PATIENT 10.6 SEC (9.8-11.6)
[2018-03-02 18:29] LABS: ALT (GPT) 25 U/L (10-53); AST (GOT) 18 U/L (15-37)
[2018-03-02 18:30] LABS: CREATININE 0.88 MG/DL (0.50-1.00); GLOMERULAR FILTRATION RATE 62 ML/MIN (>89)
[2018-03-02 18:31] LABS: TOTAL BILIRUBIN ADULT 0.6 MG/DL (0.2-1.0); TOTAL PROTEIN 7.2 GM/DL (6.4-8.2)
[2018-03-02 18:32] LABS: ALKALINE PHOSPHATASE 94 U/L (45-117)
[2018-03-02 18:35] LABS: TROPONIN I LESS THAN 0.02 NG/ML (0.02-0.05)
[2018-03-02 19:49] LABS: BILIRUBIN, URINE NEG (NEG); BLOOD, URINE MOD (NEG); GLUCOSE,URINE NEG (NEG); KETONE, URINE NEG (NEG); NITRITE,URINE NEG (NEG); PH, URINE 5.5 (5.0-8.5); URINE LEUKOCYTE ESTERASE NEG (NEG)
[2018-03-02 19:53] LABS: URINE COLOR AMBER (YELLW/STRAW)
[2018-03-02 19:55] LABS: BACTERIA, URINE FEW /hpf; WBC, URINE 0-2 /hpf (0-5)
[2018-03-02] MEDS ORDERED: IOHEXOL 350 MG/ML 10 ML VIAL (for RAD DIAG) IVCONTRAST ONE (20:03)
[2018-03-02] MEDS ORDERED: SODIUM CHLOR 0.9% 1000 ML INJ 1,000 ML IV ONE (20:15)
--- NOTE | 2018-03-02 20:24 | RADRPT ---
EXAM DATE/TIME: 03/02/2018 19:54 [facility] COMPARISON: CT ABDOMEN & PELVIS W CONTRAST, December 12, 2015, 19:41. CT ABDOMEN & PELVIS W/O CONTRAST, Harjeet 2015, 1:00. INDICATIONS : Right lower quadrant pain. IV CONTRAST: 85 cc Omnipaque 350 (iohexol) IV ORAL CONTRAST: No oral contrast ingested. RADIATION DOSE: 9.28 CTDIvol (mGy) MEDICAL HISTORY : Hypertension. Diverticulitis. Gastroesophageal reflux disease.Renal stone. SURGICAL HISTORY : Appendectomy. Tubal ligation.Cholecystectomy. ENCOUNTER: Initial ACUITY: 4 - 6 days PAIN SCALE: 6/10 LOCATION: Right lower quadrant TECHNIQUE: Volumetric scanning of the abdomen and pelvis was performed. Using automated exposure control and ad justment of the mA and/or kV according to patient size, radiation dose was kept as low as reasonably achievable to obtain optimal diagnostic quality images. DICOM format image data is available electro nically for review and comparison. FINDINGS: LOWER LUNGS: The visualized lower lungs are clear. LIVER: Redemonstration of multiple scattered bilobar hepatic cysts. Liver is otherwise stable in appearance. Gallbladder is surgically absent. Slight prominence of the central common bile duct likely due to re servoir effect. SPLEEN: Multiple splenic calcifications. PANCREAS: Within normal limits. KIDNEYS: Kidneys demonstrate symmetrical size with symmetrical enhancement. No radiopaque renal calculi or hyd ronephrosis. ADRENAL GLANDS: Stable subcentimeter left adrenal gland mass with low density consistent with adenoma. VASCULAR: No aortic aneurysm. Redemonstration of a peripherally calcified proximal splenic artery aneurysm iker uring up to 14 mm unchanged from prior exam and central splenic artery aneurysm measuring up to 8 mm unchanged from prior exam. BOWEL/MESENTERY: Small hiatal hernia. Scattered colonic diverticulosis without significant inflammatory change to sugg est diverticulitis. Small bowel loops are normal in caliber without evidence for obstruction. No free fluid or drainable fluid collections. ABDOMINAL WALL: Within normal limits. RETROPERITONEUM: There is no lymphadenopathy. BLADDER: No wall thickening or mass. REPRODUCTIVE: Within normal limits. INGUINAL: There is no lymphadenopathy or hernia. MUSCULOSKELETAL: Degenerative spondylosis of the lumbar spine. CONCLUSION: 1. Status post appendectomy. 2. Scattered colonic diverticulosis without significant inflammatory change to suggest diverticulitis . 3. Stable splenic artery aneurysms, above. 4. Additional stable ancillary findings include multiple hepatic cysts, small hiatal hernia, left adr enal adenoma, and degenerative spondylosis of the lumbar spine. Navin Campbell MD on March 02, 2018 at 20:16 Board Certified Radiologist. This report was verified electronically.
[2018-03-02 20:26] VITALS: BP 181/77; PULSE 98; RESP 18; O2SAT 96
[2018-03-02] MEDS ORDERED: LISINOPRIL 5 MG TAB PO ONE (20:30)
[2018-03-02] MEDS ORDERED: ZOFR4TAB3 SL (20:38)
--- NOTE | 2018-03-02 22:43 | EKG ---
Date Performed: 03/02/2018 Time Performed: 17:13:05 PTAGE: 77 years EKG: SINUS TACHYCARDIA POSSIBLE LEFT ATRIAL ENLARGEMENT NONSPECIFIC ST ABNORMALITY ABNORMAL RHYT ECG PREVIOUS TRACING : 08/12/2017 19.58 Compared to previous tracing, nonspecific ST abnormality is now evident. DOCTOR: Toan Maddox Interpretating Date/Time 03/02/2018 22:42:43
== END 2018-03-02 21:08 | disposition home or self-care (01) ==
LOC: PHED 17:01
DX: K52.9 Noninfective gastroenteritis and colitis, unspecified (principal); R94.31 Abnormal electrocardiogram [ECG] [EKG]; R06.00 Dyspnea, unspecified; R51 Headache; I48.91 Unspecified atrial fibrillation; K21.9 Gastro-esophageal reflux disease without esophagitis; E78.00 Pure hypercholesterolemia, unspecified; I10 Essential (primary) hypertension
CPT/HCPCS: 74177; 80053; 81001; 83605; 83690; 84484; 85025; 85610; 85730; 93005; 96360; 96361; 99284; J7030; Q9967